=== PATIENT | female | born 1940 | race Caucasian/White ===

== ENCOUNTER 2025-04-29 10:05 | Outpatient (CLI) | payer MEDICARE | END 2025-04-29 10:06 | disposition home or self-care (01) | LOC: CSHMAMMO 10:05 | PROVIDERS: ATTEND Internal Medicine | DX: M81.0 Age-related osteoporosis without current pathological fracture (principal); M85.859 Other specified disorders of bone density and structure, unspecified thigh | CPT/HCPCS: 77080 ==